=== PATIENT | female | born 1995 | race Two or more races ===

== ENCOUNTER 2024-03-22 02:12 | Emergency (ER) | payer MEDICAID, OTHER ==
[~2024-03-22] VITALS: Ht 167.6 cm; Wt 134.4 kg
[2024-03-22] MEDS: KETOROLAC TROMETH 60MG/2ML VIAL IM ONE (04:43)
[2024-03-22 05:33] VITALS: BP 114/68; PULSE 63; RESP 16; TEMP 98.2; O2SAT 99
[2024-03-22] MEDS ORDERED: IBU600T PO (05:44)
[2024-03-22] MEDS ORDERED: METH-1181 PO (05:44)
== END 2024-03-22 06:05 | disposition home or self-care (01) ==
LOC: ER 02:12
DX: S39.012A Strain of muscle, fascia and tendon of lower back, initial encounter (principal); S13.4XXA Sprain of ligaments of cervical spine, initial encounter; S20.219A Contusion of unspecified front wall of thorax, initial encounter; Z88.8 Allergy status to other drugs, medicaments and biological substances; V89.2XXA Person injured in unspecified motor-vehicle accident, traffic, initial encounter; Y93.I9 Activity, other involving external motion; Y92.89 Other specified places as the place of occurrence of the external cause; Y99.8 Other external cause status
CPT/HCPCS: 71046; 72040; 72100; 96372; 99284; J1885